=== PATIENT | female | born 1980 | race Asian ===

== ENCOUNTER 2022-04-09 01:53 | Emergency (ER) | payer OTHER ==
[~2022-04-09] VITALS: Ht 154.9 cm; Wt 54.5 kg
[2022-04-09] MEDS ORDERED: LIDOCAINE 2% 5 ML JELLY TP ONE (04:45)
[2022-04-09 05:00] VITALS: BP 124/68
== END 2022-04-09 05:56 | disposition home or self-care (01) ==
LOC: EMS 02:02
DX: T16.2XXA Foreign body in left ear, initial encounter (principal); U07.1 COVID-19; X58.XXXA Exposure to other specified factors, initial encounter; Y93.89 Activity, other specified; Y92.89 Other specified places as the place of occurrence of the external cause; Y99.8 Other external cause status
CPT/HCPCS: 99284; Z7502; Z7610

== ENCOUNTER 2022-08-04 13:10 | Emergency (ER) | payer OTHER ==
[~2022-08-04] VITALS: Ht 147.3 cm; Wt 65.9 kg
[2022-08-04] MEDS ORDERED: LORazepam 2 MG TABLET PO ONE (14:45)
[2022-08-04 15:20] VITALS: BP 128/86
== END 2022-08-04 15:32 | disposition home or self-care (01) ==
LOC: EMS 13:13
DX: F41.9 Anxiety disorder, unspecified (principal)
CPT/HCPCS: 99283

== ENCOUNTER 2022-08-07 09:10 | Emergency (ER) | payer OTHER ==
[~2022-08-07] VITALS: Ht 147.3 cm; Wt 68.2 kg
[2022-08-07] MEDS ORDERED: ACET-3385 PO (09:23)
[2022-08-07 10:36] LABS: BASOPHILS % (AUTO) 0.4 % (0.0-2.0); EOSINOPHILS % (AUTO) 0 % (1.0-6.0); HEMATOCRIT 38.7 % (36-46); HEMOGLOBIN 12.6 g/dL (12.0-16.0); LYMPHOCYTES # (AUTO) 0.9 K/uL (1.0-4.8); LYMPHOCYTES % (AUTO) 17.6 % (22.0-44.0); MEAN CORPUSCULAR HEMOGLOBIN 28.1 pg (26.0-34.0); MEAN CORPUSCULAR HGB CONC 32.7 G/dL (31.0-37.0); MEAN CORPUSCULAR VOLUME 86 fL (80-100); MONOCYTES # (AUTO) 0.3 K/uL (0.1-1.0); MONOCYTES % (AUTO) 6.3 % (2.0-9.0); NEUTROPHILS # (AUTO) 3.8 K/uL (1.8-7.7); NEUTROPHILS % (AUTO) 75.7 % (40.0-70.0); PLATELET COUNT (AUTO) 318 K/uL (150-450); RED BLOOD CELL COUNT(AUTO) 4.51 MIL/uL (4.00-5.20)
[2022-08-07 10:44] LABS: ANION GAP 9 mmol/L (8-16); CALCIUM, TOTAL 9.4 mg/dL (8.8-10.5); CARBON DIOXIDE 26 mmol/L (22-29); CHLORIDE 102 mmol/L (98-107); CREATININE 0.85 mg/dL (0.60-1.30); GLUCOSE,RANDOM 166 mg/dL (70-110); POTASSIUM 4.1 mmol/L (3.5-5.1); SODIUM SERUM 137 mmol/L (136-145); UREA NITROGEN, BLOOD 12 mg/dL (7-18)
[2022-08-07 10:45] LABS: GLOMERULAR FILTR. RATE CALC > 60 mL/min (>60)
[2022-08-07 10:56] LABS: B-TYPE NATRIURETIC PEPTIDE 8 pg/mL (0-100)
[2022-08-07 11:13] LABS: ALANINE AMINOTRANSFERASE 18 U/L (12-78); ALKALINE PHOSPHATASE 61 U/L (46-116); ASPARTATE AMINOTRANSFERASE 17 U/L (15-37); BILIRUBIN,TOTAL 0.3 mg/dL (0.1-1.0); CREATINE KINASE, TOTAL ONLY 107 U/L (26-192); HCG,QUANTITATIVE < 1 mIU/mL (0-6); PHOSPHORUS 2.2 mg/dL (2.5-4.9); TOTAL PROTEIN, SERUM 8.1 g/dL (6.4-8.2)
[2022-08-07] MEDS ORDERED: LORazepam 2 MG/ML VIAL IM ONE (12:45)
[2022-08-07] MEDS ORDERED: LORA-1000 PO (13:46)
[2022-08-07 14:05] VITALS: BP 107/68
[2022-08-07 14:38] LABS: FREE T4 (FREE THYROXINE) 1.17 ng/dL (0.76-1.46); THYROID STIMULATING HORMONE 1.73 uIU/mL (0.36-3.74)
== END 2022-08-07 14:10 | disposition home or self-care (01) ==
LOC: EMS 09:16
DX: F41.9 Anxiety disorder, unspecified (principal)
CPT/HCPCS: 99285; 80053; 82550; 83735; 83880; 84100; 84439; 84443; 84484; 84702; 85025; 36415; 93005; 96372; J2060